=== PATIENT | male | born 2000 | race Caucasian/White ===

== ENCOUNTER 2025-09-20 22:57 | Emergency (ER) | payer BC, SELFPAY ==
--- OUTSIDE RECORDS SUMMARY | 2024-11-17 08:30 | XMS_ITS ---
Author Organization [facility] Address [address] [place] [address] Care Team Providers Care Neonatal Critical Care Nurse Name Role Phone Lorie Hawk Primary Care Provider Beto Alejandre [phone] Encounters Encounter Location Date Provider Diagnosis [facility] [address] [place] [address], [place] [address] 11/17/2024 Beto Jacinto Plan Of Treatment No Information Progress Notes * VIRAL KISEROB:2000 (24 yo M)Acc No.[id number]:11/17/2024 Patient: BRETT KENNEDYLON Provider: Hudson Jacinto M.D. :2000 A ge:23 Y S ex:Male Date:11/17/2024 Address:[address] [place], [place] [phone] Pcp:Lorie Hawk * Electronic signature of Beto Jacinto MD on 09/20/2025 at 11:10 PM RISK AND INSURANCE MANAGER Sign off status: Pending * Provider: Hudson Jacinto M.D. Date: 0 11/17/2024 Generated for Devang sutherland/Tim/Irvinitting on: 1 11:10 PM RISK AND INSURANCE MANAGER
--- OUTSIDE RECORDS SUMMARY | 2024-12-28 08:30 | XMS_ITS ---
Author Organization [facility] Address [address] [place] [address] Care Team Providers Care Rifle Case Repairer Name Role Phone Lorie Hawk Primary Care Provider Quan Alejandre Unavailable [phone] REASON FOR VISIT 01/15 per 11/04/24 quan ov/lg Encounters Encounter Location Date Provider Diagnosis [facility] [address] [place] [address], [place] [address] 12/28/2024 Quan Jacinto Plan Of Treatment No Information Progress Notes * BRETT KISERINOCENCIONDOB:2000 (24 yo M)Acc No.[id number]:12/28/2024 Progress Notes Patient: ABDI KENNEDY Provider: Hudson Jacinto M.D. :2000 A ge:24 Y S ex:Male Date:12/28/2024 Address:[address] [place], [place] [id number] Pcp:Lorie Hawk Subjective: * Chief Complaints: * per 11/04/24 quan ov/lg Billing Information: * Procedure Codes: * Electronic signature of Quan Jacinto MD on 09/20/2025 at 11:10 PM AUTOMOBILE BODY CUSTOMIZER Sign off status: Pending * Provider: Hudson Jacinto M.D. Date: 0 12/28/2024 Generated for Devang ng/Faradhag/eTransmitting on: 1 11:10 PM AUTOMOBILE BODY CUSTOMIZER
[2025-09-20 23:07] VITALS: BP 165/111; PULSE 69; RESP 18; TEMP 36.4; O2SAT 99; BMI 38.0
--- OUTSIDE RECORDS SUMMARY | 2025-09-20 23:10 | XMS_ITS | Data Portability ---
Author Organization [facility] Tamiko [facility] Address [address] [address] Care Team Providers Care Log Inspector Name Role Phone DEISY CORONA Primary Care Provider Assessment No assessment recorded. Plan of Treatment Reminders Order Date Submit Date Provider Last Modified By Organization Details Last Modified Time Details Appointments None recorded. Lab None recorded. Referral None recorded. Procedures None recorded. Surgeries None recorded. Imaging None recorded. Medication Orders ondansetron 4 mg disintegrat ing tablet [address] [facility], [address], [place], [address], 11:01:09 Patient TargetsNo targets recorded. Patient Instructions Encounter Date Encounter Id Patient Instructions Last Modified By Organization Details Last Modified Time 09/19/2025 [id number] We discussed hydrating and follow up for worsening [email or web address] Not available 09/19/2025 11:02:01 Reason for Referral None Reported. Medical Equipment None Reported. Allergies No known drug allergies Medications Name Sig Start Date Stop Date Status Note LastModified by Organization Details LastModified Time ondansetron 4 mg disintegrati ng tablet Place 1 tablet 3 times a day by translingua l route before meal(s) for 4 days, for as needed for nausea. 2024 active Not Available Not Available Not Avai lable buspirone active Not Available Not Soheila ilable Not Available Vitals Date Recorded Body weight Body mass index (BMI) Body height Body temperature Heart rate Oxygen saturation Systolic And Diastolic Provider Name and Address Organization Details Last Updated DateTime 627151. 12 g 37.6 kg/m2 172.72 cm 98.1 [degF] 80 /min 97 % 156/84 mm[Hg] Cailin Merchant [facility] 10:48:40 Social History Question Answer Notes LastModified by Organizat ion Details LastModified Time Tobacco Smoking Status Never Smoker Cailin Merchant [facility] 09/19/2025 10:45:38 What Was The Date Of Your Most Recent Tobacco Screening? 09/19/2025 [email or web address] Information not available 09/19/2025 Sex: Unknown Functional Status Question Answer Note LastModified by Organizat ion Details LastModified Time Do you or have you ever used any other forms of tobacco or nicotine? Yes [email or web address] Information not available 09/19/2025 Do you or have you ever used e-cigarettes or vape? Current user of electronic cigarettes [email or web address] Information not available 09/19/2025 Mental Status None recorded. Family History Nothing Reported. Medical History No medical history recorded. Immunizations Vaccine Type Date Status Note Provider Nam e and Address Organization Details Recorded Time Hep B, adolescent or pediatric 9 completed Not Available [facility] 09/19/2025 10:41:32 Hep B, adolescent or pediatric 9 completed Not Available [facility] 09/19/2025 10:41:32 DTaP 9 completed Not Available [facility] 09/19/2025 10:41:32 Hib, unspecified formulation 9 completed Not Available [facility] 09/19/2025 10:41:32 IPV 9 completed Not Available [facility] 09/19/2025 10:41:32 DTaP 9 completed Not Available [facility] 09/19/2025 10:41:32 Hib, unspecified formulation 9 completed Not Available [facility] 09/19/2025 10:41:32 IPV 9 completed Not Available [facility] 09/19/2025 10:41:32 Hep B, adolescent or pediatric 9 completed Not Available [facility] 09/19/2025 10:41:32 DTaP 9 completed Not Available [facility] 09/19/2025 10:41:32 Hib, unspecified formulation 9 completed Not Available [facility] 09/19/2025 10:41:32 Hib, unspecified formulation 0 completed Not Available [facility] 09/19/2025 10:41:32 IPV 0 completed Not Available [facility] 09/19/2025 10:41:32 MMR 0 completed Not Available [facility] 09/19/2025 10:41:32 varicella 0 completed Not Available [facility] 09/19/2025 10:41:32 DTaP 0 completed Not Available [facility] 09/19/2025 10:41:32 DTaP 3 completed Not Available [facility] 09/19/2025 10:41:32 IPV 3 completed Not Available [facility] 09/19/2025 10:41:32 MMR 3 completed Not Available [facility] 09/19/2025 10:41:32 Tdap 1 completed Not Available [facility] 09/19/2025 10:41:32 meningococcal MCV4, unspecified formulation 5 completed Not Available [facility] 09/19/2025 10:41:32 varicella 5 completed Not Available [facility] 09/19/2025 10:41:32 meningococcal MCV4P 6 completed Not Available [facility] 09/19/2025 10:41:32 Past Encounters Encounter ID Performer Location Encounter Start Date Encounter Closed Date Diagnosis/Indication Diagnosis SNOMED-CT Code Diagnosis ICD10 Code Diagnosis IMO Codes Diagnosis Note [id number] SAVANAH THOMASON APRN [facility] ([facility]) [address] [place] [address] 09/19/2025 10:38:26 09/19/2025 11:01:34 Viral disease 08529711 B34.9 58575 Health Concerns Section Related Observation LastModified by Organization Detai ls LastModified Time None Recorded Concern Status LastModified by Organization Details LastModified Time None Recorded Advance Directives Directive None Recorded Payers Insurance Date Sequence Insurance Name Policy Number Policy Lee Covered Member ID Lee Member ID Guarantor Name 09/19/2025 1 [employer] ([place]) [id number] Glenroy [place] [id number] Glenroy Mady Notes Date Note Type Note Provider Name and Address Organization Details Recorded Time 09/19/2025 text/html walk in ptPt has vomiting and diarrhea that started last night. None this morning but still feels nauseated. SAVANAH THOMASON, [employer]IAN [employer] [address] [place], [address], [facility] 09/19/2025 11:02:12
--- NOTE | 2025-09-20 23:11 | ECG_ITS ---
[facility] Date: 2025-09-20 Pat Name: Glenroy Earl Department: Room: Gender: Male Manhole Builder: : 2000 Requested By: Benitez Wade Order Number: [id number] Reading MD: GAEL STEVENS Measurements Intervals [place] Rate: 72 P: 7 MN: 135 QRS: 47 QRSD: 89 T: 32 QT: 361 QTc: 395 Interpretive Statements SINUS RHYTHM WITH OCCASIONAL VENTRICULAR PREMATURE COMPLEXES No previous ECG available for comparison Electronically Signed On 09-23-2025 18:51:23 BALE OPENER by GAEL STEVENS [email or web address]
--- OUTSIDE RECORDS SUMMARY | 2025-09-20 23:11 | XMS_ITS | Patient Health Record ---
Author Organization [facility] Address [address] [facility] [address] Care Team Providers Care Volunteer Manager Name Role Phone Lorie Hawk Primary Care Provider Beto Alejandre Unavailable [phone] Allergies No Known Allergies Reason For Referral Reason Appt 11/04/24 Palpi tations, HTN, tachycardia Diagnosis 1 Palpitations (R00.2) Diagnosis 2 Essential hypertensi on (I10) Diagnosis 3 Tachycardia (R00.0) Referring Provider First Name Lorie Referring Provider Last Name Carine Referring Provider Speciality Family Med icine Referred Organization [facility] Referred Provider Beto Jacinto Referred Address [address],[address], Referred Provider Specialty Intervention al Cardiology Referral Priority Routine Medications Medication SIG (Take, Route, Frequency, Duration) Notes Start Date End Date Status busPIRone HCl 7.5 MG Tablet TAKE 1 TABLET BY MOUTH TWICE DAILY Oral; Duration: 90 Days Active Social History Tobacco Use: Social History Observation Description Date Details (start date - stop date) Never Smoker NA - NA Social History Tobacco Use: Social Info Question Answer Notes Tobacco Control (Standard) Tobacco use: Nonsmoker Section Notes: caffine- rarely alcohol- very rarely Problems Problem Type SNOMED Code ICD Code Onset Dates Problem Status W/U Status Risk Notes Problem Essential hypertension (48791202) Essential hypertension (I10) Active confirmed Vital Signs Heart Rate 86 /min 11/04/2024 Height-cm 170.18 cm 11/04/2024 Oximetry 99 % 11/04/2024 Blood pressure diastolic 96 mm Hg 11/04/2024 Weight-kg 117.12 kg 11/04/2024 Height 67 in 11/04/2024 Blood pressure systolic 142 mm Hg 11/04/2024 Weight 258.2 lbs 11/04/2024 BMI 40.44 kg/m2 11/04/2024 Encounters Encounter Location Date Provider Diagnosis [facility] [address] [place] [address] 11/04/2024 Beto Alirhayim Essential hypertension I10 ; Obesity, unspecified class, unspecified obesity type, unspecified whether serious comorbidity present E66.9 and Palpitations R00.2 [facility] [address] [place] [address] 11/10/2024 Beto Alirhayim Assessments Encounter Date Diagnosis (ICD Code) Assessment Notes Treatment Notes Treatment Clinical Notes Section Notes 11/04/2024 Essential hypertension (ICD-10 - I10) EKG - NSR, non specific ST-T wave changes, baseline artifact, rate 74 bpm Hypertension - Blood pressure today is 142/96. Recommended keeping a home blood pressure log. Consider sleep study referral if his home readings are also elevated. Obesity - Check lipid profile. Palpitations - Order echocardiogram. 2:1 block: Asymptomatic. Wenckebach based on my review, related to healthy vagal tone during sleep. Follow up in December. 11/04/2024 Obesity, unspecified class, unspecified obesity type, unspecified whether serious comorbidity present (ICD-10 - E66.9) EKG - NSR, non specific ST-T wave changes, baseline artifact, rate 74 bpm Hypertension - Blood pressure today is 142/96. Recommended keeping a home blood pressure log. Consider sleep study referral if his home readings are also elevated. Obesity - Check lipid profile. Palpitations - Order echocardiogram. 2:1 block: Asymptomatic. Wenckebach based on my review, related to healthy vagal tone during sleep. Follow up in December. 11/04/2024 Palpitations (ICD-10 - R00.2) EKG - NSR, non specific ST-T wave changes, baseline artifact, rate 74 bpm Hypertension - Blood pressure today is 142/96. Recommended keeping a home blood pressure log. Consider sleep study referral if his home readings are also elevated. Obesity - Check lipid profile. Palpitations - Order echocardiogram. 2:1 block: Asymptomatic. Wenckebach based on my review, related to healthy vagal tone during sleep. Follow up in December. Plan Of Treatment Pending Test Test Name Order Date Lipid Panel Reflex [id number], [id number] 08/2025 Echo Complete [id number] 11/04/2024 Electrocardiogram (EKG) - [id number] 11/04/19 25 Insurance Providers Payer Name Payer Address Payer Phone Subscriber Number Group Number Insured Name Patient Relationship to Insured Coverage Start Date Coverage End Date [place] [address] [place] [phone] [id number] ABDI KISER Self - patient is the insured Medical (General) History Medical History History ICD Code Hypertension Tachycardia Surgical History Surgery Date(Month/Year) appendectomy 2017
--- OUTSIDE RECORDS SUMMARY | 2025-09-20 23:11 | XMS_ITS | Continuity of Care Document ---
Author Organization [place] [facility] Malathi, LTamiko, [facility] ([facility]) Address [address] [place] [address] Care Team Providers Care Tape Recorder Mechanic Name Role Phone DEISY CORONA Primary Care Provider [phone] Assessment No assessment recorded. Plan of Treatment Reminders Order Date Submit Date Provider Last Modified By Organization Details Last Modified Time Details Appointments None recorded. Lab None recorded. Referral None recorded. Procedures None recorded. Surgeries None recorded. Imaging None recorded. Medication Orders ondansetron 4 mg disintegrat ing tablet 2024 025 [facility], [address], [place], [address], 11:01:09 Patient TargetsNo targets recorded. Patient Instructions Encounter Date Encounter Id Patient Instructions Last Modified By Organization Details Last Modified Time 09/19/2025 [id number] We discussed hydrating and follow up for [...] and Address Organization Details Last Updated DateTime 618635. 12 g 37.6 kg/m2 172.72 cm 98.1 [degF] 80 /min 97 % 156/84 mm[Hg] Cailin Merchant [facility] 10:48:40 Social History Question Answer Notes LastModified by Organizat ion Details LastModified Time Tobacco Smoking Status Never Smoker Cailin Merchant [facility] 09/19/2025 10:45:38 What Was The Date Of Your Most Recent Tobacco Screening? 09/19/2025 [email or web address] Information not available 09/19/2025 Sex: Unknown Functional Status Question Answer Note LastModified by Organizat ion Details LastModified Time Do you or have you ever used any other forms of tobacco or nicotine? Yes [email or web address] Information not available 09/19/2025 Do you or have you ever used e-cigarettes or vape? Current user of electronic cigarettes [email or web address] Information not available 09/19/2025 Mental Status None recorded. Family History Nothing Reported. Medical History No medical history recorded. Immunizations Vaccine Type Date Status Note Provider Nam e and Address Organization Details Recorded Time Hep B, adolescent or pediatric 9 completed Not Available [facility] 09/19/2025 10:41:32 Hep B, adolescent or pediatric [...] 09/19/2025 10:41:32 DTaP 9 completed Not Available [facility] 09/19/2025 10:41:32 Hib, unspecified formulation 9 completed Not Available [facility] 09/19/2025 10:41:32 Hib, unspecified formulation 0 completed Not Available [facility] 09/19/2025 10:41:32 IPV 0 completed Not Available [facility] 09/19/2025 10:41:32 MMR 0 completed Not Available [facility] 09/19/2025 10:41:32 varicella 0 completed Not Available [facility] 09/19/2025 10:41:32 DTaP 0 completed Not Available [facility] 09/19/2025 10:41:32 DTaP 3 completed Not Available [facility] 09/19/2025 10:41:32 IPV 3 completed Not Available [facility] 09/19/2025 10:41:32 MMR 3 completed Not Available [facility] 09/19/2025 10:41:32 Tdap 1 completed Not Available [facility] 09/19/2025 10:41:32 meningococcal MCV4, unspecified formulation 5 completed Not Available [facility] 09/19/2025 10:41:32 varicella 5 completed Not Available [facility] 09/19/2025 10:41:32 meningococcal MCV4P 6 completed Not Available [facility] 09/19/2025 10:41:32 Past Encounters Encounter ID Performer Location Encounter Start Date Encounter Closed Date Diagnosis/Indication Diagnosis SNOMED-CT Code Diagnosis ICD10 Code Diagnosis IMO Codes Diagnosis Note [id number] SAVANAH THOMASON APRN [facility] ([facility]) [address] [place] [address] 09/19/2025 10:38:26 09/19/2025 11:01:34 Viral disease 90140849 B34.9 24071 Health Concerns Section Related Observation LastModified by Organization Detai ls LastModified Time None Recorded Concern Status LastModified by Organization Details LastModified Time None Recorded Payers Encounter Date Sequence Insurance Name Policy Number Policy Lee Covered Member ID Lee Member ID Guarantor Name 09/19/2025 1 [employer] [id number] Glenroy [place] [id number] [place]roy [place] Notes Date Note Type Note Provider Name and Address Organization Details Recorded Time 09/19/2025 text/html walk in ptPt has vomiting and diarrhea that started last night. None this morning but still feels nauseated. SAVANAH THOMASON, RETAIL WAREHOUSE ASSOCIATE [address] [place], [address], [facility], Freda 09/19/2025 11:02:12
--- NOTE | 2025-09-21 00:05 | ECG_ITS ---
[facility] Date: 2025-09-21 Pat Name: Glenroy Earl Department: Room: Gender: Male Mortgage Underwriter: : 2000 Requested By: Hannah Choudhury Order Number: [id number] Heide MD: Ricardo Marsh M.D. Measurements Intervals [place] Rate: 66 P: -15 CO: 129 QRS: 24 QRSD: 86 T: 19 QT: 358 QTc: 377 Interpretive Statements SINUS RHYTHM Compared to ECG 09/20/2025 23:03:36 Ventricular premature complex(es) no longer present Electronically Signed On 09-23-2025 16:16:10 CREDIT CHARGE AUTHORIZER by Ricardo Marsh M.D. [email or web address]
--- NOTE | 2025-09-21 00:05 | XRR_ITS ---
PROCEDURE INFORMATION: Exam: XR Chest Exam date and time: 09/21/2025 12:52 AM Age: 24 years old Clinical indication: Chest pressure and sternal or substernal pain; Substernal chest pain x 1 day, non-radiating. TECHNIQUE: Imaging protocol: Radiologic exam of the chest. Views: 2 views. COMPARISON: No relevant prior studies available. FINDINGS: Lungs: Unremarkable. No consolidation. Pleural spaces: Unremarkable. No pleural effusion. No pneumothorax. Heart/Mediastinum: Unremarkable. No cardiomegaly. Bones/joints: Unremarkable. XR/XR chest 2V* 95468 IMPRESSION: No acute radiographic findings.
[2025-09-21 00:18] LABS: Hematocrit 51.5 % (37-53); Hemoglobin 17.40 g/dL (11.27-16.99); Mean Corpuscular HGB Conc 33.8 g/dL (30-55); Mean Corpuscular Hemoglobin 28.6 pg (27-33); Mean Corpuscular Volume 84.6 fl (82-101); Nucleated Red Blood Cells % 0 %; Platelet Count 308 10^3/cmm (157-399); Red Blood Count 6.09 10^6/uL (3.85-5.65); White Blood Count 10.03 10^3/uL (3.29-11.43)
[2025-09-21 00:43] LABS: Troponin(5th) Baseline 7 ng/L (0-15)
[2025-09-21 00:48] VITALS: BP 180/111; PULSE 75; RESP 18; O2SAT 97
[2025-09-21 00:51] LABS: Blood Urea Nitrogen 13 mg/dL (6-20); Calcium 9.5 mg/dL (8.5-10.5); Carbon Dioxide 24 mmol/L (22-29); Chloride 101 mmol/L (98-107); Glucose 104 mg/dL (65-115); Osmolality Calculated 286 mOsm/kg (285-295); Sodium 138 mmol/L (136-145)
[2025-09-21 00:55] LABS: Anion Gap 17.3 (5-19); Potassium 4.3 mmol/L (3.5-5.1)
--- NOTE | 2025-09-21 01:27 | ED_ITS ---
HPI - Chest Pain 2 General: Chief Complaint: Chest Pain Stated Complaint: Chest Pain Time Seen by Provider: 09/21/25 00:45 History of Present Illness: Patient is a 24-year-old male presenting with a chief complaint of retrosternal chest discomfort, nonexertional, nothing makes it better or worse, nonradiating. Patient also complains of sore throat, dry cough. He denies painful respirations, hemoptysis, syncope or lower extremity swelling. He states that symptoms started Saturday at which time he had abdominal cramping, nausea, vomiting and diarrhea, symptoms are improving. He does not have any history of cardiac disease. He does not take any medications. Patient does not take any medication for high blood pressure but states that at the doctor's office it is usually elevated. Related Data Allergies Allergy/AdvReac Type Severity Reaction Status Date / Time No Known Allergies Allergy Verified 09/20/25 23:11 Physical Exam 2 Narrative: EXAM NARRATIVE: Vital signs were reviewed. Patient is alert and oriented. Patient is breathing comfortably, no increased WOB or accessory muscle use. SpO2 is above 95% on RA. Patient has clear lungs b/l, no rhonchi, wheezing or crackles. No hypotension or tachycardia. Abdomen is soft, nondistended and nontender. No CVA tenderness w/percussion of the flanks. Patient is moving all extremities, no deformity or gross injury. No lower extremity edema or asymmetry. Course 2 Vital Signs: Vital signs: Vital Signs Temperature 97.5 F L 09/20/25 23:07 Pulse Rate 75 09/21/25 00:48 Respiratory Rate 18 09/21/25 00:48 Blood Pressure 180/111 09/21/25 00:48 Pulse Oximetry 97 09/21/25 00:48 Oxygen Delivery Me thod Room Air 09/21/25 00:48 MDM - Chest Pain Medical Decision Making 24yo M w/cc of retrosternal nonesertional chest pain (not present on exam), nonradiating, a/w cough, sore throat, malaise, n/v/d for a couple of days. Differential diagnosis includes, but is not limited to, ACS, myocarditis, pericarditis, pneumonia, viral upper respiratory infection, PE, GERD, other. On initial exam, patient is hemodynamically stable nontoxic appearing. Abdomen is nontender. EKG was personally reviewed and interpreted and shows no STEMI. Patient was evaluate CBC, MMP, troponin, D-dimer, EKG and chest x-ray. Patient has a normal white blood cell count. He does not have any actionable electrolyte abnormalities. He has a normal troponin and D dimer. CXR was personally reviewed and interpreted, does not show consolidation, ptx, pleural effusion, other acute findings. Presentation is most consistent with viral syndrome. Patient is appropriate for supportive care at home and outpatient follow-up. Patient was counseled on supportive care at home, given return precautions and discharged in stable condition with recommendation for outpatient follow-up with primary care nurse or doctor. Lab Data 09/21/25 00:13 09/21/25 00:13 Laboratory Results WBC 10.03 10^3/uL (3.29-11.43) 09/21/25 00:13 RBC 6.09 10^6/uL (3.85-5.65) H 09/21/25 00:13 Hgb 17.40 g/dL (11.27-16.99) H 09/21/25 00:13 Hct 51.5 % (37-53) 09/21/25 00:13 MCV 84.6 fl (82-101) 09/21/25 00:13 MCH 28.6 pg (27-33) 09/21/25 00:13 MCHC 33.8 g/dL (30-55) 09/21/25 00:13 RDW 12.5 % (12.1-15.1) 09/21/25 00:13 Plt Count 308 10^3/cmm (157-399) 09/21/25 00:13 MPV 8.9 fL (7.4-10.4) 09/21/25 00:13 Neut % (Auto) 66.1 % 09/21/25 00:13 Lymph % (Auto) 26.7 % 09/21/25 00:13 [place] % (Auto) 4.9 % 09/21/25 00:13 Eos % (Auto) 1.6 % 09/21/25 00:13 Baso % (Auto) 0.5 % 09/21/25 00:13 Neut # (Auto) 6.63 10^3/uL (1.8-7.7) 09/21/25 00:13 Lymph # (Auto) 2.7 10^3/uL (0.8-4.8) 09/21/25 00:13 [place] # (Auto) 0.5 10^3/uL (0.2-0.9) 09/21/25 00:13 Eos # (Auto) 0.2 10^3/uL (0.0-0.8) 09/21/25 00:13 Baso # (Auto) 0.1 10^3/uL (0.0-0.1) 09/21/25 00:13 Nucleated RBC % (auto) 0 % 09/21/25 00:13 Nucleated RBCs # 0.0 /100WBC 09/21/25 00:13 D-Dimer 0.37 ug/mLFEU (0-0.59) 09/21/25 00:13 Sodium 138 mmol/L (136-145) 09/21/25 00:13 Potassium 4.3 mmol/L (3.5-5.1) 09/21/25 00:13 Chloride 101 mmol/L (98-107) 09/21/25 00:13 Carbon Dioxide 24 mmol/L (22-29) 09/21/25 00:13 Anion Gap 17.3 (5-19) 09/21/25 00:13 BUN 13 mg/dL (6-20) 09/21/25 00:13 Creatinine 1.2 mg/dL (0.7-1.2) 09/21/25 00:13 GFR Calculation 73.2 mL/min (90-130) L 09/21/25 00:13 Glucose 104 mg/dL (65-115) 09/21/25 00:13 Calculated Osmolality 286 mOsm/kg (285-295) 09/21/25 00:13 Calcium 9.5 mg/dL (8.5-10.5) 09/21/25 00:13 Troponin T Baseline 7 ng/L (0-15) 09/21/25 00:13 XR interpretation done by ED provider, pending radiology final review Discharge Plan Discharge Patient Disposition: Home Clinical Impression: Acute viral syndrome, Non-cardiac chest pain High blood pressure Qualifiers: Hypertension type: unspecified Qualified Code(s): I10 - Essential (primary) hypertension Condition: Stable Discharge Orders: Discharge ED (Routine); Ordered 09/21/25 Ordered By: Hannah Sisperova Referrals: Lorie Hawk MD [Primary Care Provider, Family Practice] Patient Instructions: Opioid Safety, Pain Management, Patient Portal & [place] Instructions, Hypertension (ED), Viral Syndrome - Adult, Chest Pain (DC) Activity Restrictions/Additional Instructions: Please continue to monitor your condition closely at home. Take Ibuprofen 400mg and Tylenol 500-1000mg every six hours for pain and inflammation. Drink plenty of fluids and get additional rest. If your condition worsens or additional concerns arise, please return promptly to the emergency department for reassessment. Follow up with your primary care doctor in one week. Have your doctor remeasure your blood pressure; you may need medication to help lower your blood pressure. If high blood pressure is untreated for a long time, this contributes to increasing your risk of heart disease, stroke, kidney injury, erectile dysfunction, among other dangerous effects. It is important you work with your doctor to lower your blood pressure over time. Print Language: Citizen [place] Coding Level of Care Code ED Conference Services Director for Chg Fwd Heart Score HEART Score Components History: Slightly Suspicous EKG: Normal Age: Less than 45 yrs Risk Factors: 1 or 2 Risk Factors (HTN) Troponin: Baseline Trop <16 ng/L HEART Score RESULT HEART Score: 1
[2025-09-21 01:52] VITALS: BP 146/93; PULSE 60; RESP 16; O2SAT 95
== END 2025-09-21 01:55 | disposition home or self-care (01) ==
PROVIDERS: Emergency Provider Emergency Medicine; PCP Family Medicine
DX: B34.9 Viral infection, unspecified (principal); R07.89 Other chest pain; I10 Essential (primary) hypertension
CPT/HCPCS: 36415; 71046; 80048; 84484; 85025; 85378; 93005; 99285